=== PATIENT | female | born 1990 | race Native Hawaiian/Other Pacific Islander ===

== ENCOUNTER 2020-10-16 10:35 | Outpatient (CLI) | payer OTHER | END 2020-10-16 21:46 | disposition home or self-care (01) | LOC: MRI 10:35 | PROVIDERS: ATTEND Internal Medicine | DX: M54.5 Low back pain (principal); M54.10 Radiculopathy, site unspecified ==

== ENCOUNTER 2021-04-25 07:43 | Day surgery (SDC) | payer OTHER ==
[2021-04-17 10:30] LABS: PLATELET COUNT 200 K/uL (152-353)
[2021-04-17 10:51] LABS: POTASSIUM 4.2 mmol/L (3.6-5.2)
[~2021-04-25] VITALS: Ht 30.5 cm; Wt 0.5 kg
== END 2021-04-25 10:17 | disposition home or self-care (01) ==
LOC: OR 07:43
PROVIDERS: ATTEND Internal Medicine
PROC: 0DB68ZZ Excision of Stomach, Via Natural or Artificial Opening Endoscopic (ICD-10-PCS; principal; 2021-04-25)
PROC: 0DJD8ZZ Inspection of Lower Intestinal Tract, Via Natural or Artificial Opening Endoscopic (ICD-10-PCS; 2021-04-25)
DX: K29.70 Gastritis, unspecified, without bleeding (principal); K44.9 Diaphragmatic hernia without obstruction or gangrene; K64.8 Other hemorrhoids; R10.84 Generalized abdominal pain; K21.9 Gastro-esophageal reflux disease without esophagitis; Z80.0 Family history of malignant neoplasm of digestive organs; R10.13 Epigastric pain; K62.5 Hemorrhage of anus and rectum; Z12.11 Encounter for screening for malignant neoplasm of colon; Z20.822 Contact with and (suspected) exposure to COVID-19
CPT/HCPCS: 80053; 81025; 85027; 87635; J2001; J2370; J2405; J2704; J3490; U0003

== ENCOUNTER 2022-02-06 13:56 | Outpatient (CLI) | payer OTHER | END 2022-02-06 19:35 | disposition home or self-care (01) | LOC: MRI 13:56 | PROVIDERS: ATTEND Internal Medicine | DX: M54.16 Radiculopathy, lumbar region (principal) ==

== ENCOUNTER 2022-12-01 10:42 | Outpatient (CLI) | payer OTHER | END 2022-12-01 18:58 | disposition home or self-care (01) | LOC: RAD 10:42 | PROVIDERS: ATTEND Nurse Practitioner Family | DX: R06.02 Shortness of breath (principal); R05.9 Cough, unspecified ==

== ENCOUNTER 2023-04-09 10:23 | Outpatient (CLI) | payer OTHER | END 2023-04-09 22:20 | disposition home or self-care (01) | LOC: RAD 10:23 | PROVIDERS: ATTEND Nurse Practitioner Family | DX: M54.16 Radiculopathy, lumbar region (principal) ==